=== PATIENT | female | born 1995 ===

== ENCOUNTER 2022-04-13 05:20 | Day surgery (SDC) | payer OTHER ==
[~2022-04-13 05:20] MED LIST: KETO10TA2 PO
== END 2022-04-13 13:25 | disposition home or self-care (01) ==
LOC: CIR.AMB 05:20
PROVIDERS: ATTEND Obstetrics & Gynecology
DX: N84.0 Polyp of corpus uteri (principal); Q51.828 Other congenital malformations of cervix; Z91.018 Allergy to other foods; J45.909 Unspecified asthma, uncomplicated